=== PATIENT | male | born 1950 | race African-American/Black ===

== ENCOUNTER → 2018-04-22 | Outpatient (REF) | payer OTHER ==
[~2018-04-22] MED LIST: ACIDOPHILUS PRO1 TA1 PO; ALTOPREV40 MG PO; ANALGESI EX; APAP/CODEINE1 TAB PO; ASPIRIN ADULT L81 MG PO; ASPIRIN81 MG PO; ATENOLOL25 MG PO; AUGMENTIN875TAB PO; BACTRIM DS1 TAB PO; BALMEX11.3 % EX; CIPROFLOXACN500 MG PO; CLEOCIN IV; DOCQLACE100 MG PO; FUROSEMIDE20 MG PO; GERI HYDROLA EX; GLIPIZIDE10 MG PO; HUMULIN N100 UNIT/M SC; KLOR-CON 1010 ME1 PO; LISINOPRIL5 MG PO; LOVASTATIN40 MG PO; METAMUCIL28 % PO; METFORMIN500 MG PO; MUPIROCIN21; PERCOCET 10/31 COMBO PO; PERCOCET 5/325M1 TAB PO; TAB-A-VIT1 PO; TAB-A-VITE W/1 COMBO PO; TRAMADOL HCL50 MG PO; [UNRECOGNIZED DRUG - CODE] XX
[2018-04-22 08:12] LABS: HEMOGLOBIN 11.4 g/dl (14.0-18.0); IMMATURE GRANULOCYTES 0.5 % (0.0-5.0); MEAN CELL VOLUME 91.5 fL CALC (80.0-100.0); MEAN CORPUSCULAR HGB 51.1 pG CALC (26.0-32.0); MEAN CORPUSCULAR HGB CONC 55.9 g/L CALC (32.0-36.0); NEUT# 3.97 thou/uL (1.82-7.42); RED BLOOD COUNT 2.23 mill/uL (4.70-6.10); RED CELL DISTRI WIDTH 15.4 % (11.5-15.5)
[2018-04-22 08:21] LABS: ALBUMIN 3.3 g/dL (3.2-5.0); ALKALINE PHOSPHATASE 85 u/l (38-126); ANION GAP 13 (6-22 (CALC)); BILIRUBIN, TOTAL 0.5 mg/dL (0.0-1.4); BUN 11 mg/dL (8-23); BUN/CREATININE RATIO 17 (12-20 (CALC)); CARBON DIOXIDE 32 mmol/l (22-30); CHLORIDE 100 mmol/l (95-108); CREATININE 0.7 mg/dL (0.7-1.3); GFR > 60 ML/MIN (>=60 (CALC)); GFR FOR AFR.AMER. > 60 ML/MIN (>=60 (CALC)); POTASSIUM 4.4 mmol/l (3.5-5.1); SGOT/AST 28 u/l (19-48); SODIUM 141 mmol/l (137-146); TOTAL PROTEIN 7.5 g/dL (6.3-8.2)
[2018-04-22 09:12] LABS: HEMATOCRIT 30.4 % (39.0-50.0)
== END | disposition home or self-care (01) | DRG 914 ==
LOC: LABSPEC 07:47
PROVIDERS: ATTEND Internal Medicine
DX: T14.8XXA Other injury of unspecified body region, initial encounter (principal)

== ENCOUNTER 2022-01-12 22:44 | Emergency (ER) | payer OTHER ==
[~2022-01-12] VITALS: Ht 182.9 cm; Wt 108.1 kg
[2022-01-12 22:50] VITALS: BP 154/71
[2022-01-12 23:02] VITALS: BP 158/76
[2022-01-12 23:16] VITALS: BP 140/90
[2022-01-12 23:32] LABS: HEMOGLOBIN 12.1 g/dl (14.0-18.0); IMMATURE GRANULOCYTES 0.4 % (0.0-5.0); MEAN CELL VOLUME 87.9 fL CALC (80.0-100.0); MEAN CORPUSCULAR HGB 27.7 pG CALC (26.0-32.0); MEAN CORPUSCULAR HGB CONC 31.5 g/dL CAL (32.0-36.0); NEUT# 3.19 thou/uL (1.82-7.42); RED BLOOD COUNT 4.37 mill/uL (4.70-6.10); RED CELL DISTRI WIDTH 14.5 % (11.5-15.5)
[2022-01-12 23:33] VITALS: BP 131/80
[2022-01-12 23:38] LABS: HEMATOCRIT 38.4 % (39.0-50.0)
[2022-01-12 23:46] VITALS: BP 138/68
[2022-01-12 23:54] LABS: ALKALINE PHOSPHATASE 97 u/l (38-126); ANION GAP 9 (6-22 (CALC)); BUN 11 mg/dL (8-23); BUN/CREATININE RATIO 14 (12-20 (CALC)); CARBON DIOXIDE 34 mmol/l (22-30); CHLORIDE 99 mmol/l (95-108); CREATININE 0.8 mg/dL (0.7-1.3); GFR FOR AFR.AMER. > 60 ML/MIN (>=60 (CALC)); GFR OTHER RACES > 60 ML/MIN (>=60 (CALC)); POTASSIUM 4.9 mmol/l (3.5-5.1); SGOT/AST 24 u/l (19-48); SODIUM 138 mmol/l (137-146)
[2022-01-12 23:58] LABS: BILIRUBIN, TOTAL 0.2 mg/dL (0.0-1.4)
[2022-01-13 00:03] LABS: MYOGLOBIN 55 ng/mL (0 - 121)
[2022-01-13 00:16] VITALS: BP 144/75
== END 2022-01-13 00:37 | disposition designated cancer center or children's hospital (05) | DRG 316 ==
LOC: ED 22:44
PROVIDERS: Emergency Medicine
DX: R94.31 Abnormal electrocardiogram [ECG] [EKG] (principal); E11.9 Type 2 diabetes mellitus without complications; I25.2 Old myocardial infarction; Z79.84 Long term (current) use of oral hypoglycemic drugs; Z79.4 Long term (current) use of insulin

== ENCOUNTER 2022-03-25 06:50 | Emergency (ER) | payer OTHER ==
[~2022-03-25] VITALS: Ht 182.9 cm; Wt 109.0 kg
[2022-03-25] VITALS (19 sets, daily range): BP systolic 115–171; BP diastolic 63–88
[2022-03-25 07:35] LABS: BASO% 0.4 % (0-3); EOS% 8.5 % (0-8); HEMATOCRIT 36.4 % (39.0-50.0); HEMOGLOBIN 11.3 g/dl (14.0-18.0); IMMATURE GRANULOCYTES 0.2 % (0.0-5.0); LYMPH% 29.2 % (15-41); MEAN CELL VOLUME 87.1 fL CALC (80.0-100.0); NEUT# 4.92 thou/uL (1.82-7.42); NEUT% 53.7 % (42-76); RED BLOOD COUNT 4.18 mill/uL (4.70-6.10); RED CELL DISTRI WIDTH 14.7 % (11.5-15.5)
[2022-03-25] MEDS ORDERED: CVS OMEPRAZOLE20 MG PO (07:48)
[2022-03-25] MEDS ORDERED: TAMSULOSIN HCL0.4 MG PO (07:49)
[2022-03-25] MEDS ORDERED: METOPROL TAR25 MG PO (07:50)
[2022-03-25] MEDS ORDERED: [UNRECOGNIZED DRUG - OTHER] EX (07:51)
[2022-03-25] MEDS ORDERED: LIPITOR10 M1 PO (07:52)
[2022-03-25] MEDS ORDERED: CLOPIDOGREL75 MG PO (07:54)
[2022-03-25] MEDS ORDERED: INSTA GLUCOSE PO (07:56)
[2022-03-25] MEDS ORDERED: DEEP SEA NASAL0.65 % (07:56)
[2022-03-25 08:04] LABS: ALBUMIN 3.8 g/dL (3.2-5.0); ALKALINE PHOSPHATASE 120 u/l (38-126); ANION GAP 8 (6-22 (CALC)); BILIRUBIN, TOTAL 0.2 mg/dL (0.0-1.4); BUN 12 mg/dL (8-23); BUN/CREATININE RATIO 15 (12-20 (CALC)); CARBON DIOXIDE 32 mmol/l (22-30); CHLORIDE 99 mmol/l (95-108); CREATININE 0.8 mg/dL (0.7-1.3); GFR FOR AFR.AMER. > 60 ML/MIN (>=60 (CALC)); GFR OTHER RACES > 60 ML/MIN (>=60 (CALC)); POTASSIUM 4.1 mmol/l (3.5-5.1); SGOT/AST 32 u/l (19-48); SODIUM 135 mmol/l (137-146); TOTAL PROTEIN 7.7 g/dL (6.3-8.2)
[2022-03-25 08:26] LABS: URINE BILIRUBIN - DIPSTICK NEGATIVE (NEGATIVE); URINE BLOOD DIPSTICK NEGATIVE (NEGATIVE); URINE COLOR YELLOW; URINE GLUCOSE - DIPSTICK 100 mg/dL (NEGATIVE); URINE KETONE NEGATIVE (NEGATIVE); URINE LEUK ESTERASE NEGATIVE (NEGATIVE); URINE PROTEIN - DIPSTICK NEGATIVE (NEG-TRACE); URINE SPECIFIC GRAVITY 1.025
[2022-03-25 08:30] LABS: URINE NITRITE - DIPSTICK NEGATIVE (Negative)
[2022-03-25] MEDS ORDERED: CEPHALEXIN500 MG PO (13:37)
== END 2022-03-25 15:20 | disposition home or self-care (01) | DRG 313 ==
LOC: ED 06:50 → ED-I 13:36 → ED 15:20
PROVIDERS: Family Medicine
DX: R07.9 Chest pain, unspecified (principal); L03.115 Cellulitis of right lower limb; B96.89 Other specified bacterial agents as the cause of diseases classified elsewhere
CPT/HCPCS: J1650; Q9967